=== PATIENT | female | born 1945 | race Caucasian/White ===

== ENCOUNTER → 2016-06-09 | Outpatient (CLI) | payer MEDICARE, OTHER | LOC: RAD 07:54 | PROVIDERS: ATTEND Physician Assistant | DX: M54.42 Lumbago with sciatica, left side (principal) | CPT/HCPCS: 72110 ==

== ENCOUNTER → 2016-06-17 | Outpatient (CLI) | payer MEDICARE, OTHER | LOC: RAD 06:51 | PROVIDERS: ATTEND Physician Assistant | DX: M54.41 Lumbago with sciatica, right side (principal) | CPT/HCPCS: 72148 ==

== ENCOUNTER → 2017-01-12 | Outpatient (CLI) | payer MEDICARE, OTHER ==
[2017-01-12 16:15] LABS: ABSOLUTE BASOPHILS # (AUTO) 0.1 10^3/uL (0.0-0.2); ABSOLUTE EOSINOPHILS # (AUTO) 0.1 10^3/uL (0.0-0.6); ABSOLUTE LYMPHOCYTES (AUTO) 3.3 10^3/uL (0.5-4.7); ABSOLUTE MONOCYTES (AUTO) 0.5 10^3/uL (0.1-1.4); ABSOLUTE NEUT (AUTO) 5.6 10^3/uL (1.7-8.2); BASOPHILS % (AUTO) 1.5 % (0-2); EOSINOPHILS % (AUTO) 0.8 % (0-6); HEMATOCRIT 42.5 % (36.0-47.0); HEMOGLOBIN 13.7 g/dL (12.0-15.5); HGB HCT DIFFERENCE -1.4; LYMPHOCYTES % (AUTO) 34.1 % (13-45); MEAN CORPUSCULAR HEMOGLOBIN 22.6 pg (27.0-33.4); MEAN CORPUSCULAR HGB CONC 32.2 g/dL (32.0-36.0); MEAN CORPUSCULAR VOLUME 70 fl (80-97); MONOCYTES % (AUTO) 5.6 % (3-13); RED BLOOD COUNT 6.06 10^6/uL (3.72-5.28); WHITE BLOOD COUNT 9.6 10^3/uL (4.0-10.5)
[2017-01-12 16:21] LABS: PROTHROMBIN TIME 11.3 SEC (11.4-15.4)
[2017-01-12 16:33] LABS: ALANINE AMINOTRANSFERASE 23 U/L (9-52); ALBUMIN 4.4 g/dL (3.5-5.0); ALKALINE PHOSPHATASE 84 U/L (38-126); ANION GAP 7 (5-19); ASPARTATE AMINO TRANSFERASE 31 U/L (14-36); BILIRUBIN,DIRECT 0.4 mg/dL (0.0-0.4); BILIRUBIN,TOTAL 0.7 mg/dL (0.2-1.3); BLOOD UREA NITROGEN 11 mg/dL (7-20); CALCIUM 9.3 mg/dL (8.4-10.2); CARBON DIOXIDE 31 mmol/L (22-30); CHLORIDE 103 mmol/L (98-107); CREATININE RESULT 1.23 mg/dL (0.52-1.25); GLUCOSE 95 mg/dL (75-110); POTASSIUM 4.5 mmol/L (3.6-5.0); SODIUM 141.1 mmol/L (137-145); TOTAL PROTEIN 7.2 g/dL (6.3-8.2)
== END ==
LOC: LAB 15:33
PROVIDERS: ATTEND Physical Medicine & Rehabilitation Pain Medicine
DX: Z01.812 Encounter for preprocedural laboratory examination (principal); M54.42 Lumbago with sciatica, left side; M96.1 Postlaminectomy syndrome, not elsewhere classified
CPT/HCPCS: 36415; 80053; 85025; 85610

== ENCOUNTER → 2017-05-05 | Outpatient (CLI) | payer MEDICARE, OTHER ==
--- NOTE | 2017-05-05 09:19 | WOMENS IMAGING REPORT ---
EXAM DESCRIPTION: 3D SCREENING MAMMO BILAT COMPLETED DATE/TIME: 05/05/2017 7:50 am REASON FOR STUDY: ROUTINE BILATERAL SCREENING;Z12.31 COMPARISON: 04/20/2016 and 04/21/2015. TECHNIQUE: Standard craniocaudal and mediolateral oblique views of each breast recorded using digita l acquisition and breast tomosynthesis. LIMITATIONS: None. FINDINGS: No masses, calcifications or architectural distortion. No areas of suspicion. Read with the assistance of CAD. .[facility] - R2 Cenova Version 1.3 .[facility] Imaging - R2 Cenova Version 1.3 .[facility] Imaging - R2 Cenova Version 2.4 .[facility] - R2 Cenova Version 2.4 .[facility] - R2 Waste Elimination Version 9.2 IMPRESSION: NORMAL MAMMOGRAM. BIRADS 1. BREAST DENSITY: b. There are scattered areas of fibroglandular density. BIRAD: 1 NEGATIVE RECOMMENDATION: ROUTINE SCREENING COMMENT: The patient has been notified of the results by letter per SA requirements. Additional no tification policies are in place for contacting patient with suspicious or incomplete findings. Quality ID #[id number]: The [employer] recommends an annual screening mammogram for women aged 40 years or over. This facility utilizes a reminder system to ensure that all patients receive reminder letters, and/or direct phone calls for appointments. This includes reminders for routine scr eening mammograms, diagnostic mammograms, or other Breast Imaging Interventions when appropriate. Th is patient will be placed in the appropriate reminder system. The [employer] (ACR) has developed recommendations for screening MRI of the breast s in certain patient populations, to be used in conjunction with mammography. Breast MRI surveillanc e may be appropriate for women with more than 20% lifetime risk of developing breast cancer as deter mined by genetic testing, significant family history of the disease, or history of mantle radiation f or Hodgkins Disease. ACR Practice Guidelines 2008. DBT Technology DBT is a type of tomographic mammography. With conventional mammography, overlapping breast tissue ma y make lesions difficult to detect, even with good compression. DBT uses an x-ray tube that rotates a round the breast, taking images at different angles. These images are then combined to create thin sl ices of the breast that the radiologist can view as a 3D reconstruction. The [employer] unit can perform full-field digital mammograms (2D imaging); or DBT (3D imaging); or both, in a combination mode that quickly performs both the mammogram and the tomosynthesis scan while the breast is still compressed. PQRS 6045F: Fluoroscopic imaging is not utilized for breast tomosynthesis. TECHNICAL DOCUMENTATION: FINDING NUMBER: (1) ASSESSMENT: (1) JOB ID: [id number] [employer]- All Rights Reserved
== END ==
LOC: WI 07:36
PROVIDERS: ATTEND Physician Assistant
DX: Z12.31 Encounter for screening mammogram for malignant neoplasm of breast (principal)
CPT/HCPCS: 77063; G0202; 77067

== ENCOUNTER 2018-09-21 17:59 | Inpatient (IN) | payer MEDICARE, OTHER ==
--- NOTE | 2018-09-21 18:25 | ER Document Report ---
ED Medical Screen (RME) - General Chief Complaint: Shortness Of Breath Stated Complaint: SHORTNESS OF BREATH Time Seen by Provider: 09/21/18 18:19 Primary Care Provider: BROOKLYN SANTAMARIA PA [Primary Care Provider] - Follow up as needed Mode of Arrival: Wheelchair Information source: Patient Notes: 73-year-old female presented to ED for cough and congestion times 2 weeks. states she started spitting up phlegm and wheezing and then she started vomiting. states that she then became very short of breath and was having a hard time getting her breath. When I brought into the emergency room pit area her sats were 80-83 up to 87 once in a while it would go up to 91 we put her on 2 L of oxygen get her to calm down her sats went up to 99. She patient does have a history of COPD and asthma. Patient has been coughing and congestion and has refused to go to Dr. Causey for the last 2 weeks. states he brought into the emergency room because she would not follow-up with a doctor. I have greeted and performed a rapid initial assessment of this patient. A comprehensive ED assessment and evaluation of the patient, analysis of test results and completion of medical decision making process will be conducted by an additional ED providers. TRAVEL OUTSIDE OF THE [place] IN LAST 30 DAYS: No - Related Data Allergies/Adverse Reactions: No Known Allergies Allergy (Unverified 10/26/13 12:24) Past Medical History - Social History Chew tobacco use (# tins/day): No Drug Abuse: None - Past Medical History Cardiac Medical History: Reports: Hx Congestive Heart Failure, Hx Heart Attack - w/ CABG, Hx Hypercholesterolemia Pulmonary Medical History: Reports: Hx COPD Endocrine Medical History: Reports: Hx Graves' Disease, Hx Hyperthyroidism Renal/ Medical History: Denies: Hx Peritoneal Dialysis GI Medical History: Reports: Hx Gastroesophageal Reflux Disease Past Surgical History: Reports: Hx Cardiac Surgery - CABG, Hx Cholecystectomy, Hx Neurologic Surgery - back x 3, Hx Thyroid Surgery Doctor's Discharge - Discharge Referrals: BROOKLYN SANTAMARIA PA [Primary Care Provider] - Follow up as needed
[2018-09-21 18:53] LABS: ABSOLUTE BASOPHILS # (AUTO) 0.1 10^3/uL (0.0-0.2); ABSOLUTE EOSINOPHILS # (AUTO) 0.3 10^3/uL (0.0-0.6); ABSOLUTE LYMPHOCYTES (AUTO) 2.4 10^3/uL (0.5-4.7); ABSOLUTE MONOCYTES (AUTO) 0.9 10^3/uL (0.1-1.4); ABSOLUTE NEUT (AUTO) 7.7 10^3/uL (1.7-8.2); EOSINOPHILS % (AUTO) 2.9 % (0-6); HEMATOCRIT 33.8 % (36.0-47.0); HEMOGLOBIN 10.5 g/dL (12.0-15.5); LYMPHOCYTES % (AUTO) 20.9 % (13-45); MEAN CORPUSCULAR HEMOGLOBIN 20.6 pg (27.0-33.4); MEAN CORPUSCULAR HGB CONC 30.9 g/dL (32.0-36.0); MEAN CORPUSCULAR VOLUME 67 fl (80-97); MONOCYTES % (AUTO) 7.5 % (3-13); PLATELET COUNT 271 10^3/uL (150-450); RED BLOOD COUNT 5.06 10^6/uL (3.72-5.28); RED CELL DISTRIBUTION WIDTH 16.7 % (11.5-14.0); SEGMENTED NEUTROPHILS % (AUTO) 67.7 % (42-78); TOTAL CELLS COUNTED % (AUTO) 100 %; WHITE BLOOD COUNT 11.4 10^3/uL (4.0-10.5)
[2018-09-21] MEDS ORDERED: IPRATROPIUM/ALBUTEROL 0.5-2.5 MG/3 ML AMPUL NEB ONE ×2 (18:55→19:32)
[2018-09-21] MEDS ORDERED: METHYLPREDNISOLONE INJ 125 MG/2 ML SDV IV ONE (18:56)
--- NOTE | 2018-09-21 18:56 | ER Document Report ---
ED General - General Mode of Arrival: Wheelchair TRAVEL OUTSIDE OF THE [place] IN LAST 30 DAYS: No <AUGUSTIN SORIA - Last Filed: 09/21/18 20:16> <ENRIQUE HICKMAN - Last Filed: 09/21/18 22:49> - General Chief Complaint: Shortness Of Breath Stated Complaint: SHORTNESS OF BREATH Time Seen by Provider: 09/21/18 18:19 Primary Care Provider: BROOKLYN SANTAMARIA PA [Primary Care Provider] - Follow up as needed Notes: 73-year-old female with history of COPD, asthma and CABG BIBA to ED for cough and congestion times 2 weeks. states she started spitting up phlegm and wheezing and then she started vomiting. states that she then became very short of breath and was having a hard time getting her breath. When brought into the emergency room pit area her sats were 80-83 up to 87 once in a while it would go up to 91 in the triage provider put her on 2 L of oxygen get her to calm down her sats went up to 99. She patient does have a history of COPD and asthma. Patient complains of laryngitis, productive cough, wheezing, intermittent fevers, weakness, reduced appetite, abdominal pain secondary to cough. Denies any chest pain headache, dizziness, lightheadedness, diaphoresis (AUGUSTIN SORIA) - Related Data Allergies/Adverse Reactions: No Known Allergies Allergy (Unverified 10/26/13 12:24) Past Medical History - General Information source: Patient - Social History Smoking Status: Former Smoker Chew tobacco use (# tins/day): No Drug Abuse: None Family History: Reviewed & Not Pertinent, CAD Patient has suicidal ideation: No Patient has homicidal ideation: No - Past Medical History Cardiac Medical History: Reports: Hx Congestive Heart Failure, Hx Heart Attack - w/ CABG, Hx Hypercholesterolemia Pulmonary Medical History: Reports: Hx COPD Endocrine Medical History: Reports: Hx Graves' Disease, Hx Hyperthyroidism Renal/ Medical History: Denies: Hx Peritoneal Dialysis GI Medical History: Reports: Hx Gastroesophageal Reflux Disease Past Surgical History: Reports: Hx Cardiac Surgery - CABG, Hx Cholecystectomy, Hx Neurologic Surgery - back x 3, Hx Thyroid Surgery <AUGUSTIN SORIA - Last Filed: 09/21/18 20:16> Review of Systems - Review of Systems Constitutional: See HPI EENT: See HPI Cardiovascular: See HPI Respiratory: See HPI Gastrointestinal: See HPI Genitourinary: No symptoms reported Female Genitourinary: No symptoms reported Musculoskeletal: No symptoms reported Skin: No symptoms reported Hematologic/Lymphatic: No symptoms reported Neurological/Psychological: See HPI <AUGUSTIN SORIA - Last Filed: 09/21/18 20:16> Physical Exam <AUGUSTIN SORIA - Last Filed: 09/21/18 20:16> - Vital signs Vitals: Temp Pulse Resp BP Pulse Ox 99.0 F 72 20 123/85 84 L 09/21/18 18:20 09/21/18 18:20 09/21/18 18:20 09/21/18 18:20 09/21/18 18:20 - Notes Notes: PHYSICAL EXAMINATION: Reviewed vital signs and charting by RN GENERAL: Alert, interacts well. No acute distress. HEAD: Normocephalic, atraumatic. EYES: Pupils equal and round. Extraocular movements intact. ENT: Oral mucosa moist, tongue midline. NECK: Full range of motion. Supple. Trachea midline. LUNGS: Very tight chest with inspiratory and expiratory wheezing, no rales or rhonchi. mILD respiratory distress. HEART: Regular rate and rhythm. No murmur ABDOMEN: soft, non-tender. Non-distended. Bowel sounds present EXTREMITIES: Moves all 4 extremities spontaneously. No edema, No cyanosis. Normal distal neurovascular exam NEUROLOGIC: Oriented and appropriate. Normal speech. PSYCH: Normal affect, normal mood. SKIN: Warm, dry, normal turgor. No rashes or lesions noted. (AUGUSTIN SORIA) Course - Laboratory Result Diagrams: 09/21/18 18:42 09/21/18 18:42 <AUGUSTIN SORIA - Last Filed: 09/21/18 20:16> - Laboratory Result Diagrams: 09/21/18 18:42 09/21/18 18:42 <ENRIQUE HICKMAN - Last Filed: 09/21/18 22:49> - Re-evaluation Re-evalutation: 09/21/18 18:56 Patient in mild respiratory distress, very tight with difficulty moving air with inspiratory and expiratory wheezes and rhonchi. Chest x-ray. Solu-Medrol 100 will reassess. 09/21/18 20:17 Patient states she felt little relief from DuoNeb x 3, patient received Solu- Medrol. Chest x-ray radiology read as no acute finding in the chest but questionable air bronchograms seen in the right middle lobe. Dr. Causey is her primary care doctor. Lab work overall unremarkable patient appears mildly ill. Handoff done to BRITTANY Carty, on evening or night nurse supervisor. (AUGUSTIN SORIA) 09/21/18 21:22 This Raulito Hickman physician development assistant I [facility] has [facility] me and entered his meter patient done a physical examination the patient myself and my physical examination he goes along pretty much with his and the patient is a 73-year-old female who is in no apparent distress at this time although she does appear moderately ill she is awful pale appearing on physical exam. She laid still on 2 L nasal cannula is running about 93% she is been tachycardic at anywhere from 100-110 with a respiratory rate in the 24-30 range. She has been slightly hypertensive at 168/106. On my reexamination of the patient I felt that her cardiac work-up should also be initiated because of age and she was throwing some PVCs on the monitor always watching. She denies any chest pain her only complaint is shortness of breath and cough. Currently I am holding on a VBG that was ordered by jose roberto earlier and I have added on a troponin in the BNP BNP comes back at 989 and troponin was less than 0.012. EKG is pending still. My plan at this point is to contact her provider who is for admission for COPD exacerbation. 09/21/18 22:48 Reevaluation the patient shoulder still be somewhat tachypneic and mildly short of breath with audible wheezing. I talked to Dr. Collins and he is except the patient is admission and will be taken over patient's care. (ENRIQUE HICKMAN) - Vital Signs Vital signs: Temp Pulse Resp BP Pulse Ox 98 F 72 31 H 131/70 H 95 09/21/18 22:01 09/21/18 18:20 09/21/18 22:01 09/21/18 22:01 09/21/18 22:01 - Laboratory Laboratory results interpreted by me: 09/21/18 09/21/1809/21/19 18:42 18:42 18:42 WBC 11.4 H Hgb 10.5 L Hct 33.8 L MCV 67 L MCH 20.6 L MCHC 30.9 L RDW 16.7 H Carbonic Acid ABG pCO2 ABG pO2 ABG HCO3 ABG Total CO2 ABG O2 Saturation Anion Gap 4 L Est GFR (Non-Af Amer) 50 L NT-Pro-B Natriuret Pep 989 H Total Protein 6.0 L Albumin 3.3 L Urine Blood Ur Leukocyte Esterase 09/21/18 09/21/18 20:04 22:20 WBC Hgb Hct MCV MCH MCHC RDW Carbonic Acid 1.39 H ABG pCO2 46.2 H ABG pO2 72.9 L ABG HCO3 24.9 H ABG Total CO2 26.3 H ABG O2 Saturation 93.9 L Anion Gap Est GFR (Non-Af Amer) NT-Pro-B Natriuret Pep Total Protein Albumin Urine Blood SMALL H Ur Leukocyte Esterase SMALL H Discharge <AUGUSTIN SORIA - Last Filed: 09/21/18 20:16> - Discharge Admitting Provider: Karina Unit Admitted: [facility] <ENRIQUE HICKMAN - Last Filed: 09/21/18 22:49> - Discharge Clinical Impression: COPD exacerbation Disposition: ADMITTED INPATIENT Referrals: BROOKLYN SANTAMARIA PA [Primary Care Provider] - Follow up as needed
[2018-09-21 19:23] LABS: ALANINE AMINOTRANSFERASE 27 U/L (9-52); ALBUMIN 3.3 g/dL (3.5-5.0); ALKALINE PHOSPHATASE 95 U/L (38-126); ASPARTATE AMINO TRANSFERASE 15 U/L (14-36); BILIRUBIN,DIRECT 0.3 mg/dL (0.0-0.4); BILIRUBIN,TOTAL 0.4 mg/dL (0.2-1.3); BLOOD UREA NITROGEN 7 mg/dL (7-20); CALCIUM 8.8 mg/dL (8.4-10.2); CARBON DIOXIDE 30 mmol/L (22-30); GLUCOSE 100 mg/dL (75-110)
[2018-09-21 19:28] LABS: ANION GAP 4 (5-19); CHLORIDE 105 mmol/L (98-107); SODIUM 138.8 mmol/L (137-145)
--- NOTE | 2018-09-21 19:30 | RADIOLOGY REPORT (SQ) ---
EXAM DESCRIPTION: CHEST SINGLE VIEW COMPLETED DATE/TIME: 09/21/2018 7:19 pm REASON FOR STUDY: SOB COMPARISON: 03/19/2015 EXAM PARAMETERS: NUMBER OF VIEWS: One view. TECHNIQUE: Single frontal radiographic view of the chest acquired. RADIATION DOSE: NA LIMITATIONS: None. FINDINGS: LUNGS AND PLEURA: No opacities, masses or pneumothorax. No pleural effusion. MEDIASTINUM AND HILAR STRUCTURES: No masses. Contour normal. HEART AND VASCULAR STRUCTURES: Heart normal in size. Normal vasculature. BONES: Sternal wires. HARDWARE: None in the chest. OTHER: No other significant finding. IMPRESSION: NO ACUTE RADIOGRAPHIC FINDING IN THE CHEST. TECHNICAL DOCUMENTATION: JOB ID: [id number] [employer]- All Rights Reserved Reading location - IP/workstation name: [email or web address]
[2018-09-21] MEDS ORDERED: LIDOCAINE 0.5% INJ-PF (5 MG/ML) 50 ML SDV NEB ONE (19:31)
[2018-09-21 20:22] LABS: APPEARANCE,URINE SLIGHTLY-CLOUDY; BILIRUBIN,URINE NEGATIVE (NEGATIVE); COLOR,URINE YELLOW; GLUCOSE, URINE NEGATIVE (NEGATIVE); KETONES,URINE NEGATIVE (NEGATIVE); LEUKOCYTE ESTERASE,URINE SMALL (NEGATIVE); NITRITE,URINE NEGATIVE (NEGATIVE); PROTEIN,URINE NEGATIVE (NEGATIVE); URINE SPECIFIC GRAVITY 1.012; UROBILINOGEN,URINE NEGATIVE mg/dL (<2.0)
[2018-09-21] MEDS ORDERED: HYDRALAZINE HCL 25 MG TABLET PO ONE (20:33)
[2018-09-21] MEDS ORDERED: ACETAMINOPHEN WITH CODEINE #3 TABLET PO STA (20:37)
[2018-09-21 21:12] LABS: CREATINE KINASE MB 0.62 ng/mL (<4.55); NT PRO BNP 989 pg/mL (5-900); TROPONIN I < 0.012 ng/mL
[2018-09-21 22:29] LABS: ARTERIAL BLOOD H2CO3 1.39 mmol/L (1.05-1.35); ARTERIAL BLOOD HCO3 24.9 mmol/L (20-24); ARTERIAL BLOOD O2 SATURATION 93.9 % (94-98); ARTERIAL BLOOD PCO2 46.2 mmHg (35-45); ARTERIAL BLOOD PH 7.35 (7.35-7.45); ARTERIAL BLOOD PO2 72.9 mmHg (80-100); ARTERIAL BLOOD TOTAL CO2 26.3 mmol/L (21-25)
[2018-09-21 22:30] LABS: ARTERIAL BLOOD FIO2 28%
[2018-09-21] MEDS ORDERED: LORAZEPAM INJ 2 MG/1 ML VIAL IV ONE (22:48)
[2018-09-22] MEDS ORDERED: IPRATROPIUM/ALBUTEROL 0.5-2.5 MG/3 ML AMPUL NEB PRN ×2 (02:41→03:00)
[2018-09-22] MEDS ORDERED: METHYLPREDNISOLONE INJ 125 MG/2 ML SDV IV ONE (03:00)
[2018-09-22] MEDS: METHYLPREDNISOLONE INJ 125 MG/2 ML SDV IV SCH ×2 (10:38→18:55)
--- NOTE | 2018-09-22 14:01 | PDOC H&P ---
History of Present Illness Admission Date/PCP: 09/21/18 23:08 NAVYA HERNANDES MD Patient complains of: Difficulty with breathing History of Present Illness: BLAYNE CROSS is a 73 year old female patient of Dr. Hernandes who presented to the ED with progressive shortness of breath, wheezing, productive cough, fever, chills, and intermittent hoarseness. Patient demonstrated hypoxemia upon arrival in the ED and improved with supplemental oxygen at 2L/min. Denies any chest pain, headache, dizziness, lightheadedness, or diaphoresis. She claimed compliance with her medications and denied cigarette smoking. Her morbidities include COPD, Asthma, CAD s/p CABG, Hyperlipidemia, Grave's disease, chronic back pain, Degenerative disc disease s/p laminectomy surgery, and GERD. Due to lack of improvement despite initial treatment in the ED she was advised hospitalization for further management of her exacerbated COPD. Past Medical History Cardiac Medical History: Reports: Congestive Heart Failure, Myocardial Infarction - w/ CABG, Hyperlipidema Pulmonary Medical History: Reports: Chronic Obstructive Pulmonary Disease (COPD) Endocrine Medical History: Reports: Hyperthyroidism GI Medical History: Reports: Gastroesophageal Reflux Disease Psychiatric Medical History: Reports: Depression Past Surgical History Past Surgical History: Reports: Cholecystectomy Social History Smoking Status: Former Smoker Last Time Smoked: May 2018 Frequency of Alcohol Use: None Drugs: None Hx Prescription Drug Abuse: No - Advance Directive Resuscitation Status: Full Code Family History Family History: Reviewed & Not Pertinent, CAD Parental Family History Reviewed: Yes Children Family History Reviewed: Yes Sibling(s) Family History Reviewed.: Yes Medication/Allergy Home Medications: Diazepam [Valium 5 mg Tablet] 5 mg PO Q12HP PRN 10/26/13 Trazodone HCl [Desyrel] 200 mg PO QHS 10/26/13 Albuterol Sulfate [Proair Hfa Inhalation Aerosol 8.5 gm Mdi] 1 puff IH Q6HP PRN 09/22/18 Brimonidine Tartrate [Alphagan P] 1 drop OS BID 09/22/18 Cetirizine HCl [Zyrtec 10 mg Tablet] 10 mg PO DAILY 09/22/18 Dexlansoprazole [Dexilant 30 mg Capsule] 30 mg PO DAILY 09/22/18 Eszopiclone [Lunesta] 3 mg PO QHS 09/22/18 Ezetimibe [Zetia 10 mg Tablet] 10 mg PO DAILY 09/22/18 Hydrocodone/Acetaminophen [[place] 5-325 mg Tablet] 1 tab PO Q8HP PRN 09/22/18 Latanoprost/Pf [Latanoprost 0.005% Eye Drop] 1 drop OS BID 09/22/18 Levothyroxine Sodium [Synthroid 0.1 mg Tablet] 0.1 mg PO Q6AM 09/22/18 Meloxicam [Mobic] 7.5 mg PO Q12 09/22/18 Allergies/Adverse Reactions: No Known Allergies Allergy (Unverified 10/26/13 12:24) Review of Systems Constitutional: PRESENT: chills, fever(s), weakness Eyes: ABSENT: visual disturbances Ears: ABSENT: hearing changes Nose, Mouth, and Throat: PRESENT: sore throat Cardiovascular: ABSENT: chest pain, dyspnea on exertion, edema, orthropnea, palpitations Respiratory: PRESENT: cough, dyspnea, sputum Gastrointestinal: PRESENT: nausea, vomiting. ABSENT: as per HPI, abdominal pain, bloating, coffee ground emesis, constipation, diarrhea, dysphagia, heartburn, hematemesis, hematochezia, melena, other Genitourinary: ABSENT: dysuria, hematuria Musculoskeletal: PRESENT: back pain, muscle weakness Integumentary: ABSENT: as per HPI, diaphoresis, erythema, lesions, pruritus, rash, wounds, other Neurological: ABSENT: abnormal gait, abnormal speech, confusion, dizziness, focal weakness, syncope Psychiatric: ABSENT: anxiety, depression, homidical ideation, suicidal ideation Endocrine: ABSENT: cold intolerance, heat intolerance, polydipsia, polyuria Hematologic/Lymphatic: ABSENT: easy bleeding, easy bruising, lymphadenopathy Allergic/Immunologic: ABSENT: seasonal rhinorrhea Physical Exam Vital Signs: Temp Pulse Resp BP Pulse Ox 97.9 F 94 18 168/74 H 95 09/22/18 11:17 09/22/18 11:17 09/22/18 11:17 09/22/18 11:17 09/22/18 11:17 Intake & Output 09/21/18 09/22/18 09/23/18 06:59 06:59 06:59 Output Total 100 Balance -100 Weight 77.7 kg General appearance: PRESENT: mild distress, obese Head exam: PRESENT: atraumatic, normocephalic Eye exam: PRESENT: conjunctiva pink, EOMI, PERRLA. ABSENT: scleral icterus Ear exam: PRESENT: normal external ear exam Mouth exam: PRESENT: moist Neck exam: PRESENT: full ROM. ABSENT: carotid bruit, JVD, lymphadenopathy, thyromegaly Respiratory exam: PRESENT: decreased breath sounds - at lung bases, prolonged expiratory phas, rhonchi - minimal in expiratory phase Cardiovascular exam: PRESENT: RRR. ABSENT: diastolic murmur, rubs, systolic murmur Vascular exam: PRESENT: normal capillary refill. ABSENT: pallor GI/Abdominal exam: PRESENT: normal bowel sounds, soft. ABSENT: distended, guarding, mass, organolmegaly, rebound, tenderness Extremities exam: ABSENT: pedal edema Musculoskeletal exam: PRESENT: normal inspection Neurological exam: PRESENT: alert, awake, oriented to person, oriented to place, oriented to time, oriented to situation, CN II-XII grossly intact. ABSENT: motor sensory deficit Psychiatric exam: PRESENT: appropriate affect, normal mood. ABSENT: homicidal ideation, suicidal ideation Skin exam: PRESENT: dry, warm Results Laboratory Results: 09/21/18 18:42 09/21/18 18:42 09/21/18 09/21/18 09/21/18 18:42 18:42 20:04 WBC 11.4 H RBC 5.06 Hgb 10.5 L Hct 33.8 L MCV 67 L MCH 20.6 L MCHC 30.9 L RDW 16.7 H Plt Count 271 Seg Neutrophils % 67.7 Lymphocytes % 20.9 Monocytes % 7.5 Eosinophils % 2.9 Basophils % 1.0 Absolute Neutrophils 7.7 Absolute Lymphocytes 2.4 Absolute Monocytes 0.9 Absolute Eosinophils 0.3 Absolute Basophils 0.1 Carbonic Acid HCO3/H2CO3 Ratio ABG pH ABG pCO2 ABG pO2 ABG HCO3 ABG O2 Saturation ABG Base Excess FiO2 Sodium 138.8 Potassium 4.0 Chloride 105 Carbon Dioxide 30 Anion Gap 4 L BUN 7 Creatinine 1.08 Est GFR ( Amer) > 60 Est GFR (Non-Af Amer) 50 L Glucose 100 Calcium 8.8 Total Bilirubin 0.4 AST 15 ALT 27 Alkaline Phosphatase 95 Total Protein 6.0 L Albumin 3.3 L Urine Color YELLOW Urine Appearance SLIGHTLY-CLOUDY Urine pH 6.0 Ur Specific [place] 1.012 Urine Protein NEGATIVE Urine Glucose (UA) NEGATIVE Urine Ketones NEGATIVE Urine Blood SMALL H Urine Nitrite NEGATIVE Ur Leukocyte Esterase SMALL H Urine WBC (Auto) 4 Urine RBC (Auto) 2 09/21/18 22:20 WBC RBC Hgb Hct MCV MCH MCHC RDW Plt Count Seg Neutrophils % Lymphocytes % Monocytes % Eosinophils % Basophils % Absolute Neutrophils Absolute Lymphocytes Absolute Monocytes Absolute Eosinophils Absolute Basophils Carbonic Acid 1.39 H HCO3/H2CO3 Ratio 17:1 ABG pH 7.35 ABG pCO2 46.2 H ABG pO2 72.9 L ABG HCO3 24.9 H ABG O2 Saturation 93.9 L ABG Base Excess -1.0 FiO2 28% Sodium Potassium Chloride Carbon Dioxide Anion Gap BUN Creatinine Est GFR ( Amer) Est GFR (Non-Af Amer) Glucose Calcium Total Bilirubin AST ALT Alkaline Phosphatase Total Protein Albumin Urine Color Urine Appearance Urine pH Ur Specific [place] Urine Protein Urine Glucose (UA) Urine Ketones Urine Blood Urine Nitrite Ur Leukocyte Esterase Urine WBC (Auto) Urine RBC (Auto) 09/21/18 09/21/18 18:42 18:42 Creatine Kinase 62 CK-MB (CK-2) 0.62 Troponin I < 0.012 NT-Pro-B Natriuret Pep 989 H Impressions: Chest X-Ray 09/21/18 18:31 IMPRESSION: NO ACUTE RADIOGRAPHIC FINDING IN THE CHEST. Assessment & Plan - Diagnosis (1) COPD exacerbation Is this a current diagnosis for this admission?: Yes Plan: See admitting attending physician orders for care plan details. (2) CAD (coronary artery disease) Qualifiers: Coronary Disease-Associated Artery/Lesion type: [place] artery Is this a current diagnosis for this admission?: Yes Plan: See admitting attending physician orders for care plan details. (3) HLD (hyperlipidemia) Qualifiers: Hyperlipidemia type: pure hypercholesterolemia Qualified Code(s): E78.00 - Pure hypercholesterolemia, unspecified; E78.0 - Pure hypercholesterolemia Is this a current diagnosis for this admission?: Yes Plan: See admitting attending physician orders for care plan details. (4) Chronic pain syndrome Is this a current diagnosis for this admission?: Yes Plan: See admitting attending physician orders for care plan details. (5) Chronic use of opiate drug for therapeutic purpose Is this a current diagnosis for this admission?: Yes Plan: See admitting attending physician orders for care plan details. - Time Time Spent: 50 to 70 Minutes Medications reviewed and adjusted accordingly: Yes Anticipated discharge: Home with Homehealth Within: Other - Inpatient Certification Based on my medical assessment, after consideration of the patient's comorbidi ties, presenting symptoms, or acuity I expect that the services needed warrant INPATIENT care.: Yes I certify that my determination is in accordance with my understanding of Ananda mckay's requirements for reasonable and necessary INPATIENT services [42 CFR 412.3e].: Yes Medical Necessity: Significant Comorbidiites Make Outpatient Treatment Too Risky, Need Close Monitoring Due to Risk of Patient Decompensation, Need For IV Fluids, Need For Continuous Telemetry Monitoring, Need for Nebulizer Therapy and Monitoring of Response, Need for Pain Control, Risk of Complication if Not Cared For in Hospital, Risk of Diagnosis Which Will Require Inpatient Eval/Care/Monitoring Post Hospital Care: D/C Consulting Database Administrator Documentation - Plan Summary Plan Summary: See admitting attending physician orders for care plan details.
[2018-09-22] MEDS: HYDROCODONE/ACETAMINOPHEN 5-325 MG TABLET PO PRN (16:46)
[2018-09-22] MEDS ORDERED: (PENDING PHARMACY ID) (Latanoprost/Pf [Latanoprost 0.005% Eye Drop] 1 DROP) OS SCH (18:00)
[2018-09-22] MEDS ORDERED: (PENDING PHARMACY ID) (Brimonidine Tartrate [Alphagan P] 1 DROP) OS SCH (18:00)
[2018-09-22] MEDS: LATANOPROST 0.005% OPH SOLN 2.5 ML OS SCH (18:56)
[2018-09-22] MEDS ORDERED: PANTOPRAZOLE SODIUM 40 MG TABLET.DR PO ONE (21:00)
--- NOTE | 2018-09-22 21:03 | EKG REPORT ---
SEVERITY:- ABNORMAL ECG - SINUS TACHYCARDIA VENTRICULAR PREMATURE COMPLEX LEFT BUNDLE BRANCH BLOCK : Confirmed by: Lorna Henley MD 22-Sep-2018 21:03:23
[2018-09-22] MEDS: TRAZODONE HCL 50 MG TABLET PO SCH (21:04)
--- NOTE | 2018-09-22 21:04 | EKG REPORT ---
SEVERITY:- ABNORMAL ECG - SINUS RHYTHM INCOMPLETE LEFT BUNDLE BRANCH BLOCK LVH WITH SECONDARY REPOLARIZATION ABNORMALITY ANTERIOR Q WAVES, POSSIBLY DUE TO LVH : Confirmed by: Lorna Henley MD 22-Sep-2018 21:03:19
[2018-09-22] MEDS ORDERED: (PENDING PHARMACY ID) (Trazodone Hcl [Desyrel] 200 MG) PO SCH (22:00)
[2018-09-23] MEDS: HYDROCODONE/ACETAMINOPHEN 5-325 MG TABLET PO PRN ×2 (05:51→15:10)
[2018-09-23] MEDS: METHYLPREDNISOLONE INJ 125 MG/2 ML SDV IV SCH ×3 (05:52→18:31)
[2018-09-23] MEDS: LEVOTHYROXINE SODIUM 0.1 MG TABLET PO SCH (05:52)
[2018-09-23] MEDS: PANTOPRAZOLE SODIUM 40 MG TABLET.DR PO SCH (05:52)
[2018-09-23] MEDS: EZETIMIBE 10 MG TABLET PO SCH (09:35)
[2018-09-23] MEDS: LATANOPROST 0.005% OPH SOLN 2.5 ML OS SCH ×2 (09:36→18:31)
[2018-09-23] MEDS: CETIRIZINE 10 MG TABLET PO SCH (09:36)
[2018-09-23] MEDS: ENOXAPARIN SODIUM INJ 40 MG/0.4 ML DISP.SYRIN SUBCUT SCH (09:36)
--- NOTE | 2018-09-23 15:55 | PDOC PROGRESS REPORT ---
Subjective Progress Note for:: 09/23/18 Subjective:: Patient reported hoarseness and coughing spells overnight. Breathing is getting better with less wheezing. No chest pain. She denied nausea, vomiting or abdominal pain. Reason For Visit: EXACERBATION COPD Physical Exam Vital Signs: Temp Pulse Resp BP Pulse Ox 97.8 F 84 16 133/54 H 92 09/23/18 10:58 09/23/18 10:58 09/23/18 10:58 09/23/18 10:58 09/23/18 10:58 Intake & Output 09/22/18 09/23/18 09/24/18 06:59 06:59 06:59 Intake Total 1270 474 Output Total 100 Balance -100 1270 474 Weight 77.7 kg 77.6 kg General appearance: PRESENT: no acute distress, obese Head exam: PRESENT: atraumatic, normocephalic Eye exam: PRESENT: conjunctiva pink. ABSENT: scleral icterus Ear exam: PRESENT: normal external ear exam Mouth exam: PRESENT: moist Respiratory exam: PRESENT: clear to auscultation yadi Cardiovascular exam: PRESENT: RRR. ABSENT: diastolic murmur, rubs, systolic murmur Vascular exam: ABSENT: pallor GI/Abdominal exam: PRESENT: normal bowel sounds, soft. ABSENT: distended, guarding, mass, organolmegaly, rebound, tenderness Extremities exam: ABSENT: pedal edema Musculoskeletal exam: PRESENT: normal inspection Neurological exam: PRESENT: alert, awake, oriented to person, oriented to place, oriented to time, oriented to situation, CN II-XII grossly intact. ABSENT: motor sensory deficit Psychiatric exam: PRESENT: appropriate affect, normal mood. ABSENT: homicidal ideation, suicidal ideation Skin exam: PRESENT: dry, warm Results Laboratory Results: 09/21/18 18:42 09/21/18 18:42 09/21/18 09/21/18 18:42 18:42 Creatine Kinase 62 CK-MB (CK-2) 0.62 Troponin I < 0.012 NT-Pro-B Natriuret Pep 989 H Impressions: Chest X-Ray 09/21/18 18:31 IMPRESSION: NO ACUTE RADIOGRAPHIC FINDING IN THE CHEST. Assessment & Plan - Diagnosis (1) COPD exacerbation Is this a current diagnosis for this admission?: Yes (2) CAD (coronary artery disease) Qualifiers: Coronary Disease-Associated Artery/Lesion type: [place] artery Is this a current diagnosis for this admission?: Yes (3) HLD (hyperlipidemia) Qualifiers: Hyperlipidemia type: pure hypercholesterolemia Qualified Code(s): E78.00 - Pure hypercholesterolemia, unspecified; E78.0 - Pure hypercholesterolemia Is this a current diagnosis for this admission?: Yes (4) Chronic pain syndrome Is this a current diagnosis for this admission?: Yes (5) Chronic use of opiate drug for therapeutic purpose Is this a current diagnosis for this admission?: Yes - Time Time Spent with patient: 25-34 minutes Medications reviewed and adjusted accordingly: Yes Anticipated discharge: Home Within: Other - Inpatient Certification Based on my medical assessment, after consideration of the patient's comorbidities, presenting symptoms, or acuity I expect that the services needed warrant INPATIENT care.: Yes I certify that my determination is in accordance with my understanding of Medicare's requirements for reasonable and necessary INPATIENT services [42 CFR 412.3e].: Yes Medical Necessity: Significant Comorbidiites Make Outpatient Treatment Too Risky, Need Close Monitoring Due to Risk of Patient Decompensation, Need For Continuous Telemetry Monitoring, Risk of Complication if Not Cared For in Hospital, Risk of Diagnosis Which Will Require Inpatient Eval/Care/Monitoring Post Hospital Care: D/C Hospital Admissions Clerk Documentation - Plan Summary Plan Summary: Decrease IV Solu Medrol to 80 mg q 8 hours. Obtain CBC with diff, CMP in AM.
[2018-09-23] MEDS ORDERED: GUAIFENESIN SYRP 200 MG/10 ML UDC PO PRN (16:07)
[2018-09-23] MEDS ORDERED: PANTOPRAZOLE SODIUM 40 MG TABLET.DR PO ONE (19:45)
[2018-09-23] MEDS: TRAZODONE HCL 50 MG TABLET PO SCH (21:07)
[2018-09-24] MEDS: METHYLPREDNISOLONE INJ 125 MG/2 ML SDV IV SCH ×3 (01:43→17:31)
[2018-09-24] MEDS: HYDROCODONE/ACETAMINOPHEN 5-325 MG TABLET PO PRN ×2 (01:44→13:17)
[2018-09-24] MEDS: PANTOPRAZOLE SODIUM 40 MG TABLET.DR PO SCH (05:17)
[2018-09-24] MEDS: LEVOTHYROXINE SODIUM 0.1 MG TABLET PO SCH (05:18)
--- NOTE | 2018-09-24 09:33 | RADIOLOGY REPORT (SQ) ---
EXAM DESCRIPTION: CHEST 2 VIEWS COMPLETED DATE/TIME: 09/24/2018 9:22 am REASON FOR STUDY: sob/copd COMPARISON: 09/21/2018 EXAM PARAMETERS: NUMBER OF VIEWS: two views TECHNIQUE: Digital Frontal and Lateral radiographic views of the chest acquired. RADIATION DOSE: NA LIMITATIONS: none FINDINGS: LUNGS AND PLEURA: No opacities, masses or pneumothorax. No pleural effusion. MEDIASTINUM AND HILAR STRUCTURES: No masses or contour abnormalities. HEART AND VASCULAR STRUCTURES: Cardiomegaly. Mild prominence of the pulmonary vasculature, may repr esent vascular congestion. BONES: No acute findings. HARDWARE: Prior anterior median sternotomy. OTHER: No other significant finding. IMPRESSION: 1. Cardiomegaly. Mild prominence of the pulmonary vasculature, suggest vascular conges tion. 2. No acute pulmonary consolidation. TECHNICAL DOCUMENTATION: JOB ID: [id number] [employer]- All Rights Reserved Reading location - IP/workstation name: [email or web address]
[2018-09-24] MEDS: EZETIMIBE 10 MG TABLET PO SCH (09:56)
[2018-09-24] MEDS: LATANOPROST 0.005% OPH SOLN 2.5 ML OS SCH ×2 (09:56→17:31)
[2018-09-24] MEDS: CETIRIZINE 10 MG TABLET PO SCH (09:56)
[2018-09-24] MEDS: ENOXAPARIN SODIUM INJ 40 MG/0.4 ML DISP.SYRIN SUBCUT SCH (09:57)
[2018-09-24] MEDS ORDERED: DIAZEPAM 5 MG TABLET PO PRN (14:10)
[2018-09-24] MEDS: ESCITALOPRAM OXALATE 10 MG TABLET PO SCH (14:23)
--- NOTE | 2018-09-24 14:37 | PDOC PROGRESS REPORT ---
Subjective Progress Note for:: 09/24/18 Subjective:: Patient was admitted for the COPD acute exacerbations Currently doing much better with the IV Solu-Medrol Patient have a chronic pain syndrome and a chronic psych issue and currently see outpatients for that Patient is denied any chest pain to than any shortness of the breath Reason For Visit: EXACERBATION COPD Physical Exam Vital Signs: Temp Pulse Resp BP Pulse Ox 97.6 F 87 18 126/66 H 94 09/24/18 11:25 09/24/18 11:25 09/24/18 11:25 09/24/18 11:25 09/24/18 11:25 Intake & Output 09/23/18 09/24/18 09/25/18 06:59 06:59 06:59 Intake Total 1270 1529 472 Balance 1270 1529 472 Weight 77.6 kg 77.4 kg General appearance: PRESENT: no acute distress, well-developed, well-nourished Head exam: PRESENT: atraumatic, normocephalic Eye exam: PRESENT: conjunctiva pink, EOMI, PERRLA. ABSENT: scleral icterus Ear exam: PRESENT: normal external ear exam Mouth exam: PRESENT: moist, tongue midline Neck exam: PRESENT: full ROM. ABSENT: carotid bruit, JVD, lymphadenopathy, thyromegaly Respiratory exam: PRESENT: clear to auscultation yadi Cardiovascular exam: PRESENT: RRR. ABSENT: diastolic murmur, rubs, systolic murmur Vascular exam: PRESENT: normal capillary refill GI/Abdominal exam: PRESENT: normal bowel sounds, soft. ABSENT: distended, guarding, mass, organolmegaly, rebound, tenderness Rectal exam: PRESENT: deferred Extremities exam: ABSENT: pedal edema Musculoskeletal exam: PRESENT: ambulatory Neurological exam: PRESENT: alert, awake, oriented to person, oriented to place, oriented to time, oriented to situation, CN II-XII grossly intact. ABSENT: motor sensory deficit Psychiatric exam: PRESENT: appropriate affect, normal mood. ABSENT: homicidal ideation, suicidal ideation Skin exam: PRESENT: dry, intact, warm. ABSENT: cyanosis, rash Results Laboratory Results: 09/21/18 18:42 09/21/18 18:42 09/21/18 09/21/18 18:42 18:42 Creatine Kinase 62 CK-MB (CK-2) 0.62 Troponin I < 0.012 NT-Pro-B Natriuret Pep 989 H Impressions: Chest X-Ray 09/24/18 00:00 IMPRESSION: 1. Cardiomegaly. Mild prominence of the pulmonary vasculature, suggest vascular congestion. 2. No acute pulmonary consolidation. Assessment & Plan - Diagnosis (1) COPD exacerbation Is this a current diagnosis for this admission?: Yes Plan: Currently doing well we will cut down the IV Solu-Medrol (2) CAD (coronary artery disease) Qualifiers: Coronary Disease-Associated Artery/Lesion type: [place] artery Is this a current diagnosis for this admission?: Yes Plan: Chest x-ray suggest some cardiomegaly will get the echocardiogram (3) Chronic pain syndrome Is this a current diagnosis for this admission?: Yes Plan: Current medications (4) HLD (hyperlipidemia) Qualifiers: Hyperlipidemia type: pure hypercholesterolemia Qualified Code(s): E78.00 - Pure hypercholesterolemia, unspecified; E78.0 - Pure hypercholesterolemia Is this a current diagnosis for this admission?: Yes Plan: Currently all stable (5) Status post lumbar laminectomy Is this a current diagnosis for this admission?: Yes Plan: Currently all stable - Time Time Spent with patient: 15-24 minutes Medications reviewed and adjusted accordingly: Yes Anticipated discharge: Home Within: Other - Plan Summary Plan Summary: Continue current medications
[2018-09-24] MEDS: TRAZODONE HCL 50 MG TABLET PO SCH (22:15)
[2018-09-24] MEDS: ZOLPIDEM TARTRATE 5 MG TABLET PO SCH (22:16)
[2018-09-25] MEDS: METHYLPREDNISOLONE INJ 125 MG/2 ML SDV IV SCH (02:58)
[2018-09-25 05:04] LABS: ABSOLUTE LYMPHOCYTES (AUTO) 0.8 10^3/uL (0.5-4.7); ABSOLUTE MONOCYTES (AUTO) 0.2 10^3/uL (0.1-1.4); ABSOLUTE NEUT (AUTO) 7.6 10^3/uL (1.7-8.2); BASOPHILS % (AUTO) 0.1 % (0-2); HEMATOCRIT 35.1 % (36.0-47.0); HEMOGLOBIN 11.3 g/dL (12.0-15.5); LYMPHOCYTES % (AUTO) 9.7 % (13-45); MEAN CORPUSCULAR HEMOGLOBIN 21.1 pg (27.0-33.4); MEAN CORPUSCULAR HGB CONC 32.2 g/dL (32.0-36.0); MEAN CORPUSCULAR VOLUME 66 fl (80-97); MONOCYTES % (AUTO) 2.4 % (3-13); PLATELET COUNT 309 10^3/uL (150-450); RED BLOOD COUNT 5.36 10^6/uL (3.72-5.28); RED CELL DISTRIBUTION WIDTH 16.5 % (11.5-14.0); SEGMENTED NEUTROPHILS % (AUTO) 87.8 % (42-78); TOTAL CELLS COUNTED % (AUTO) 100 %; WHITE BLOOD COUNT 8.6 10^3/uL (4.0-10.5)
[2018-09-25] MEDS: LEVOTHYROXINE SODIUM 0.1 MG TABLET PO SCH (05:27)
[2018-09-25] MEDS: PANTOPRAZOLE SODIUM 40 MG TABLET.DR PO SCH (05:27)
[2018-09-25 05:37] LABS: BLOOD UREA NITROGEN 35 mg/dL (7-20); CALCIUM 9.4 mg/dL (8.4-10.2); GLUCOSE 122 mg/dL (75-110); POTASSIUM 4.6 mmol/L (3.6-5.0)
[2018-09-25 05:42] LABS: CARBON DIOXIDE 29 mmol/L (22-30); CHLORIDE 107 mmol/L (98-107); SODIUM 139.2 mmol/L (137-145)
[2018-09-25 05:47] LABS: ANION GAP 3 (5-19)
[2018-09-25] MEDS: CETIRIZINE 10 MG TABLET PO SCH (09:18)
[2018-09-25] MEDS: ESCITALOPRAM OXALATE 10 MG TABLET PO SCH (09:18)
[2018-09-25] MEDS: ENOXAPARIN SODIUM INJ 40 MG/0.4 ML DISP.SYRIN SUBCUT SCH (09:18)
[2018-09-25] MEDS: PREDNISONE 20 MG TABLET PO SCH ×2 (09:18→17:22)
[2018-09-25] MEDS: EZETIMIBE 10 MG TABLET PO SCH (09:18)
[2018-09-25] MEDS: LATANOPROST 0.005% OPH SOLN 2.5 ML OS SCH ×2 (09:19→17:22)
--- NOTE | 2018-09-25 13:19 | PDOC PROGRESS REPORT ---
Subjective Progress Note for:: 09/25/18 Subjective:: Patient is feeling much better Patient denied any chest pain to than any shortness of the breath Patient had a history of the mitral valve repair and history of the ca rdiomyopathy status post surgery and currently see a [facility] was seen 4 months back Patient EF was 40-45%'s Patient is otherwise denied any other symptoms Reason For Visit: EXACERBATION COPD Physical Exam Vital Signs: Temp Pulse Resp BP Pulse Ox 98.4 F 71 16 147/84 H 94 09/25/18 11:25 09/25/18 11:25 09/25/18 11:25 09/25/18 11:25 09/25/18 11:25 Intake & Output 09/24/18 09/25/18 09/26/18 06:59 06:59 06:59 Intake Total 1529 708 474 Balance 1529 708 474 Weight 77.4 kg 77.4 kg General appearance: PRESENT: no acute distress, well-developed, well-nourished Head exam: PRESENT: atraumatic, normocephalic Eye exam: PRESENT: conjunctiva pink, EOMI, PERRLA. ABSENT: scleral icterus Ear exam: PRESENT: normal external ear exam Mouth exam: PRESENT: moist, tongue midline Neck exam: PRESENT: full ROM. ABSENT: carotid bruit, JVD, lymphadenopathy, thyromegaly Respiratory exam: PRESENT: clear to auscultation yadi Cardiovascular exam: PRESENT: RRR. ABSENT: diastolic murmur, rubs, systolic murmur Pulses: PRESENT: normal dorsalis pedis pul, +2 pedal pulses bilateral Vascular exam: PRESENT: normal capillary refill GI/Abdominal exam: PRESENT: normal bowel sounds, soft. ABSENT: distended, guarding, mass, organolmegaly, rebound, tenderness Rectal exam: PRESENT: deferred Extremities exam: ABSENT: pedal edema Musculoskeletal exam: PRESENT: ambulatory Neurological exam: PRESENT: alert, awake, oriented to person, oriented to place, oriented to time, oriented to situation, CN II-XII grossly intact. ABSENT: motor sensory deficit Psychiatric exam: PRESENT: appropriate affect, normal mood. ABSENT: homicidal ideation, suicidal ideation Skin exam: PRESENT: dry, intact, warm. ABSENT: cyanosis, rash Results Laboratory Results: 09/25/18 04:24 09/25/18 04:24 09/25/18 09/25/18 04:24 04:24 WBC 8.6 RBC 5.36 H Hgb 11.3 L Hct 35.1 L MCV 66 L MCH 21.1 L MCHC 32.2 RDW 16.5 H Plt Count 309 Seg Neutrophils % 87.8 H Lymphocytes % 9.7 L Monocytes % 2.4 L Eosinophils % 0.0 Basophils % 0.1 Absolute Neutrophils 7.6 Absolute Lymphocytes 0.8 Absolute Monocytes 0.2 Absolute Eosinophils 0.0 Absolute Basophils 0.0 Sodium 139.2 Potassium 4.6 Chloride 107 Carbon Dioxide 29 Anion Gap 3 L BUN 35 H Creatinine 1.04 Est GFR ( Amer) > 60 Est GFR (Non-Af Amer) 52 L Glucose 122 H Calcium 9.4 09/21/18 09/21/18 18:42 18:42 Creatine Kinase 62 CK-MB (CK-2) 0.62 Troponin I < 0.012 NT-Pro-B Natriuret Pep 989 H Impressions: Chest X-Ray 09/24/18 00:00 IMPRESSION: 1. Cardiomegaly. Mild prominence of the pulmonary vasculature, suggest vascular congestion. 2. No acute pulmonary consolidation. Assessment & Plan - Diagnosis (1) COPD exacerbation Is this a current diagnosis for this admission?: Yes Plan: Continues IV Solu-Medrol start on a p.o. steroids (2) CAD (coronary artery disease) Qualifiers: Coronary Disease-Associated Artery/Lesion type: [place] artery Is this a current diagnosis for this admission?: Yes Plan: 3 with a history of the cardiomyopathy and a history of the mitral valve repair (3) Chronic pain syndrome Is this a current diagnosis for this admission?: Yes Plan: Current medications (4) HLD (hyperlipidemia) Qualifiers: Hyperlipidemia type: pure hypercholesterolemia Qualified Code(s): E78.00 - Pure hypercholesterolemia, unspecified; E78.0 - Pure hypercholesterolemia Is this a current diagnosis for this admission?: Yes Plan: Currently all stable (5) Status post lumbar laminectomy Is this a current diagnosis for this admission?: Yes - Time Time Spent with patient: 15-24 minutes Medications reviewed and adjusted accordingly: Yes Anticipated discharge: Home Within: within 24 hours - Plan Summary Plan Summary: Patient remains stable probably discharge tomorrow we will get the echocardiogram today
[2018-09-25] MEDS: TRAZODONE HCL 50 MG TABLET PO SCH (21:33)
[2018-09-25] MEDS: ZOLPIDEM TARTRATE 5 MG TABLET PO SCH (21:33)
--- NOTE | 2018-09-25 22:50 | XCELERA REPORT ---
[address] [address] Transthoracic Echocardiogram Report Name: BLAYNE CROSS Age: 73 yrs Gender: Female : 1945 Patient Status: Inpatient Patient Location: [facility]^A Study Date: 09/24/2018 05:26 PM Height: 63 in Weight: 170 lb BSA: 1.8 m2 Procedure: A two-dimensional transthoracic echocardiogram with color flow and Doppler was performed. Study Quality: Fair. Reason For Study: cardiomegaly History: cardiomegaly. Ordering Physician: NAVYA HERNANDES Performed By: Evelin Muñoz Interpretation Summary The left ventricle is normal in size. There is normal left ventricular wall thickness. LV EF is 65% The left ventricular ejection fraction is within normal limits. Doppler measurements suggest impaired left ventricular relaxation, which is associated with grade I/IV or mild diastolic dysfunction The left ventricular wall motion is normal. There is no thrombus. No ASD , VSD , or PFO seen. The right ventricle is normal in size and function. The right ventricle is not well visualized secondary to technical limitations The right atrium is normal. The left atrial size is normal. There is no evidence of mitral valve prolapse. There is no vegetation seen on the mitral valve. There is no mitral valve stenosis. There is a trace amount of mitral regurgitation There is no aortic valve stenosis There is no LVOT obstruction. There is a mild amount of aortic regurgitation There is no tricuspid stenosis. There is a mild to moderate amount of tricuspid regurgitation There is mild pulmonary hypertension by echo RVSP is 36 to 41 mm of Hg , with RA mean of 5 to 10. There is no pulmonic valvular stenosis. There is a trace amount of pulmonic regurgitation The aortic root is normal size. The inferior vena cava appeared normal and decreased > 50% with respiration (RAP 5-10 mmHg) There is no pericardial effusion. MMode/2D Measurements & Calculations RVDd: 2.6 cm LVIDd: 5.6 cm FS: 35.6 % Ao root diam: 2.7 cm IVSd: 1.2 cm LVIDs: 3.6 cm EDV(Teich): 152.3 ml Ao root area: 5.5 cm2 LVPWd: 1.1 cm ESV(Teich): 54.2 ml LA dimension: 4.0 cm EF(Teich): 64.4 % Doppler Measurements & Calculations MV E max destiny: MV P1/2t max destiny: Ao V2 max: AI max destiny: 77.1 cm/sec 126.7 cm/sec 128.2 cm/sec 440.8 cm/sec MV A max destiny: MV P1/2t: 50.3 msec Ao max PG: AI max P.8 cm/sec MVA(P1/2t): 4.4 cm2 6.6 mmHg 77.8 mmHg MV E/A: 0.71 MV dec slope: AI dec slope: 196.7 cm/sec2 738.2 cm/sec2 AI P1/2t: MV dec time: 656.3 msec 0.21 sec LV V1 max PG: PA V2 max: PI end-d destiny: TR max destiny: 5.0 mmHg 105.9 cm/sec 108.6 cm/sec 276.0 cm/sec LV V1 max: PA max P.5 mmHg TR max P.0 cm/sec 30.5 mmHg AV P1/2t-pr_phl: MV P1/2t-pr_phl: 659.0 msec 50.3 msec Left Ventricle The left ventricle is normal in size. There is normal left ventricular wall thickness. LV EF is 65%. The left ventricular ejection fraction is within normal limits. Doppler measurements suggest impaired left ventricular relaxation, which is associated with grade I/IV or mild diastolic dysfunction. The left ventricular wall motion is normal. There is no thrombus. No ASD , VSD , or PFO seen. Right Ventricle The right ventricle is normal in size and function. The right ventricle is not well visualized secondary to technical limitations. Atria The right atrium is normal. The left atrial size is normal. Mitral Valve There is no evidence of mitral valve prolapse. There is no vegetation seen on the mitral valve. There is no mitral valve stenosis. There is a trace amount of mitral regurgitation. Aortic Valve There is no aortic valvular vegetation. There is no aortic valve stenosis. There is no LVOT obstruction. There is a mild amount of aortic regurgitation. Tricuspid Valve There is no tricuspid stenosis. There is a mild to moderate amount of tricuspid regurgitation. There is mild pulmonary hypertension by echo. RVSP is 36 to 41 mm of Hg , with RA mean of 5 to 10. Pulmonic Valve There is no pulmonic valvular stenosis. There is a trace amount of pulmonic regurgitation. Great Vessels The aortic root is normal size. The inferior vena cava appeared normal and decreased > 50% with respiration (RAP 5-10 mmHg). Effusions There is no pericardial effusion. : NAVYA HERNANDES > Lorna Henley
[2018-09-26] MEDS: LEVOTHYROXINE SODIUM 0.1 MG TABLET PO SCH (05:12)
[2018-09-26] MEDS: PANTOPRAZOLE SODIUM 40 MG TABLET.DR PO SCH (05:12)
[2018-09-26 05:53] LABS: BLOOD UREA NITROGEN 32 mg/dL (7-20); CALCIUM 9.1 mg/dL (8.4-10.2); GLUCOSE 91 mg/dL (75-110); POTASSIUM 4.2 mmol/L (3.6-5.0)
[2018-09-26 06:00] LABS: CARBON DIOXIDE 30 mmol/L (22-30); CHLORIDE 107 mmol/L (98-107); SODIUM 139.4 mmol/L (137-145)
[2018-09-26 06:03] LABS: ANION GAP 2 (5-19)
[2018-09-26 08:32] VITALS: BP 146/83
--- NOTE | 2018-09-26 08:56 | PDOC DISCHARGE SUMMARY ---
General - Admit/Disc Date/PCP Admission Date/Primary Care Provider: 09/21/18 23:08 BRITTANY MACK Discharge Date: 09/26/18 - Discharge Diagnosis (1) COPD exacerbation Is this a current diagnosis for this admission?: Yes Summary: Currently all resolving (2) CAD (coronary artery disease) Is this a current diagnosis for this admission?: Yes Summary: Since echocardiogram is currently stable patient see the [place] [facility]ology (3) Chronic pain syndrome Is this a current diagnosis for this admission?: Yes Summary: Follow with the pain management (4) HLD (hyperlipidemia) Is this a current diagnosis for this admission?: Yes (5) Status post lumbar laminectomy Is this a current diagnosis for this admission?: Yes - Additional Information Resuscitation Status: Full Code Discharge Diet: Cardiac Prescriptions: Fluticasone/Vilanterol [Breo Ellipta 100-25 Mcg INH] 1 each IH DAILY #1 [email or web address] Prednisone [Deltasone 20 mg Tablet] 20 mg PO DAILY #5 tablet Home Medications: Diazepam [Valium 5 mg Tablet] 5 mg PO Q12HP PRN 10/26/13 Trazodone HCl [Desyrel] 200 mg PO QHS 10/26/13 Albuterol Sulfate [Proair HFA Inhalation Aerosol 8.5 gm MDI] 1 puff IH Q6HP PRN 09/22/18 Brimonidine Tartrate [Alphagan P] 1 drop OS BID 09/22/18 Cetirizine HCl [Zyrtec 10 mg Tablet] 10 mg PO DAILY 09/22/18 Dexlansoprazole [Dexilant 30 mg Capsule] 30 mg PO DAILY 09/22/18 Eszopiclone [Lunesta] 3 mg PO QHS 09/22/18 Ezetimibe [Zetia 10 mg Tablet] 10 mg PO DAILY 09/22/18 Hydrocodone/Acetaminophen [[place]cdowell 5-325 mg Tablet] 1 tab PO Q8HP PRN 09/22/18 Latanoprost [Xalatan 0.005% Oph Soln 2.5 ml] 1 drop OS BID 09/22/18 Levothyroxine Sodium [Synthroid 0.1 mg Tablet] 0.1 mg PO Q6AM 09/22/18 Meloxicam [Mobic] 7.5 mg PO Q12 09/22/18 Fluticasone/Vilanterol [Breo Ellipta 100-25 Mcg INH] 1 each IH DAILY #1 [email or web address] 09/26/18 Prednisone [Deltasone 20 mg Tablet] 20 mg PO DAILY #5 tablet 09/26/18 History of Present Illness History of Present Illness: BLAYNE CROSS is a 73 year old female This is a 73-year-old female's with a history of COPD hypertension's hyperlipidemia history of hypertrophic cardiomyopathy status post mitral valve repair and history of the chronic pain syndromes psych issues came to the emergency department the shortness of breath and admitting in the hospital and started on IV Solu-Medrol respiratory treatments Hospital Course Hospital Course: This is a 73-year-old female as above medical problem came to the emergency department the shortness of breath and diagnosed with a COPD with acute exacerbations Patient started with IV Solu-Medrol respiratory treatments Patient responds very well discontinues to IV Solu-Medrol put on the p.o. steroids Patient also have an echocardiogram done because of the cardiomyopathy with EF is 60%'s was EF was 45 to 50%'s on a cardiology office in June The patient is otherwise p.o. intake is good Patient is walking the hallway without oxygen's Patient's desire to go home and pretty much patients get a maximum benefit from the hospitals Follow outpatients cardiology Currently doing well discharge home with the stable conditions Physical Exam Vital Signs: Temp Pulse Resp BP Pulse Ox 98.1 F 73 16 146/83 H 95 09/26/18 08:31 09/26/18 08:31 09/26/18 08:31 09/26/18 08:31 09/26/18 08:31 Intake & Output 09/25/18 09/26/18 09/27/18 06:59 06:59 06:59 Intake Total 708 799 Balance 708 799 Weight 77.4 kg 77.5 kg General appearance: PRESENT: no acute distress, well-developed, well-nourished Head exam: PRESENT: atraumatic, normocephalic Eye exam: PRESENT: conjunctiva pink, EOMI, PERRLA. ABSENT: scleral icterus Ear exam: PRESENT: normal external ear exam Mouth exam: PRESENT: moist, tongue midline Neck exam: PRESENT: full ROM. ABSENT: carotid bruit, JVD, lymphadenopathy, thyromegaly Respiratory exam: PRESENT: clear to auscultation yadi Cardiovascular exam: PRESENT: RRR. ABSENT: diastolic murmur, rubs, systolic murmur Vascular exam: PRESENT: normal capillary refill GI/Abdominal exam: PRESENT: normal bowel sounds, soft. ABSENT: distended, guarding, mass, organolmegaly, rebound, tenderness Rectal exam: PRESENT: deferred Extremities exam: ABSENT: pedal edema Musculoskeletal exam: PRESENT: ambulatory Neurological exam: PRESENT: alert, awake, oriented to person, oriented to place, oriented to time, oriented to situation, CN II-XII grossly intact. ABSENT: motor sensory deficit Psychiatric exam: PRESENT: appropriate affect, normal mood. ABSENT: homicidal ideation, suicidal ideation Skin exam: PRESENT: dry, intact, warm. ABSENT: cyanosis, rash Results Laboratory Results: 09/25/18 04:24 09/26/18 04:40 09/26/18 04:40 Sodium 139.4 Potassium 4.2 Chloride 107 Carbon Dioxide 30 Anion Gap 2 L BUN 32 H Creatinine 1.04 Est GFR ( Amer) > 60 Est GFR (Non-Af Amer) 52 L Glucose 91 Calcium 9.1 09/21/18 09/21/18 18:42 18:42 Creatine Kinase 62 CK-MB (CK-2) 0.62 Troponin I < 0.012 NT-Pro-B Natriuret Pep 989 H Impressions: Chest X-Ray 09/24/18 00:00 IMPRESSION: 1. Cardiomegaly. Mild prominence of the pulmonary vasculature, suggest vascular congestion. 2. No acute pulmonary consolidation. Qualifiers - * PATIENT BEING DISCHARGED WITH ANY OF THE FOLLOWING DIAGNOSIS: No VTE patient discharged on overlapping Therapy?: Yes Plan Time Spent: Greater than 30 Minutes - In office in 1 week
== END 2018-09-26 08:53 | disposition home or self-care (01) | DRG 192 ==
LOC: ER 17:59 → EH 23:08 → 3N 09-22 00:55
PROVIDERS: ADMIT Family Medicine; ATTEND Family Medicine
DX: J44.1 Chronic obstructive pulmonary disease with (acute) exacerbation (principal); E05.00 Thyrotoxicosis with diffuse goiter without thyrotoxic crisis or storm; E78.5 Hyperlipidemia, unspecified; M54.9 Dorsalgia, unspecified; I50.9 Heart failure, unspecified; I11.0 Hypertensive heart disease with heart failure; I25.2 Old myocardial infarction; K21.9 Gastro-esophageal reflux disease without esophagitis; F32.9 Major depressive disorder, single episode, unspecified; M51.35 Other intervertebral disc degeneration, thoracolumbar region; Z90.49 Acquired absence of other specified parts of digestive tract; I25.10 Atherosclerotic heart disease of native coronary artery without angina pectoris; G89.4 Chronic pain syndrome; Z95.1 Presence of aortocoronary bypass graft; Z87.891 Personal history of nicotine dependence; Z79.891 Long term (current) use of opiate analgesic; Z98.890 Other specified postprocedural states
CPT/HCPCS: 36415; 36600; 71045; 71046; 80048; 80053; 81001; 82550; 82553; 82803; 83880; 84484; 85025; 93005; 93010; 93306; 94640; 96374; 99285; J1650; J2060; J2930; J3490; J7512; J7620